=== PATIENT | male | born 1965 | race Caucasian/White ===

== ENCOUNTER 2018-07-13 06:01 | Day surgery (SDC) | payer OTHER ==
[2018-07-13] MEDS ORDERED: PROPOFOL 200 MG INJ (07:00)
[2018-07-13] MEDS ORDERED: LIDOCAINE 2% (SDV) 5 ML INJ (08:02)
[2018-07-13] MEDS ORDERED: FENTAnyl 50 MCG/ML VIAL (08:02)
[2018-07-13] MEDS ORDERED: MIDAZOLAM 1 MG/ML 2 ML INJ (08:02)
[2018-07-13] MEDS ORDERED: PROPOFOL 40 ML (08:02)
== END 2018-07-13 11:30 | disposition home or self-care (01) ==
LOC: GIL 06:01
DX: Z12.11 Encounter for screening for malignant neoplasm of colon (principal); K64.8 Other hemorrhoids; E78.00 Pure hypercholesterolemia, unspecified
CPT/HCPCS: 45378; 88305

== ENCOUNTER 2018-09-25 06:44 | Day surgery (SDC) | payer OTHER ==
[2018-09-25] MEDS ORDERED: LACTATED RINGER'S 1,000 ML IV (07:00)
[2018-09-25] MEDS ORDERED: SOD CHLORIDE 0.9% 1,000 ML IV (07:00)
[2018-09-25 08:03] LABS: ADD MAN DIFF? NO
[2018-09-25 08:05] LABS: BASOPHIL # 0.1 10^3/ul (0.0-0.1); BASOPHILS % 0.6 % (0.0-2.0); EOSINOPHILS # 0.5 10^3/ul (0.0-0.5); EOSINOPHILS % 5.1 % (0.0-7.0); HEMATOCRIT 40.2 % (37.0-47.0); HEMOGLOBIN 13.5 g/dl (12.0-16.0); LYMPHOCYTES # 1.3 10^3/ul (0.8-2.9); LYMPHOCYTES % 14.3 % (15.0-51.0); MEAN CORPUSCULAR HEMOGLOBIN 29.6 pg (29.0-33.0); MEAN CORPUSCULAR HGB CONC 33.6 g/dl (32.0-37.0); MEAN CORPUSCULAR VOLUME 88.2 fl (82.0-101.0); MEAN PLATELET VOLUME 9.7 fl (7.4-10.4); MONOCYTE # 0.7 10^3/ul (0.3-0.9); MONOCYTES % 8.2 % (0.0-11.0); NEUTROPHIL # 6.4 10^3/ul (1.6-7.5); NEUTROPHILS % 71.2 % (39.0-77.0); PLATELET COUNT 254 10^3/UL (140-415); RED BLOOD COUNT 4.56 10^6/ul (4.20-5.40); RED CELL DISTRIBUTION WIDTH 13.5 % (11.5-14.5)
[2018-09-25] MEDS ORDERED: MIDAZOLAM 1 MG/ML 2 ML INJ (08:38)
[2018-09-25] MEDS ORDERED: LIDOCAINE 2% (SDV) 5 ML INJ (08:38)
[2018-09-25] MEDS ORDERED: PROPOFOL 20 ML (08:38)
[2018-09-25] MEDS ORDERED: FENTAnyl 50 MCG/ML VIAL (08:39)
[2018-09-25] MEDS: LIDOCAINE 1%/EPI (1:100,000) (MDV) 20 ML (09:23)
[2018-09-25] MEDS ORDERED: FAMOTIDINE 20 MG INJ (09:26)
[2018-09-25] MEDS ORDERED: DEXAMETHASONE 4 MG/ML 5 ML INJ (09:26)
[2018-09-25] MEDS ORDERED: ONDANSETRON 4 MG INJ (09:26)
[2018-09-25] MEDS ORDERED: ONDANSETRON 4 MG INJ IV (09:30)
[2018-09-25] MEDS ORDERED: FENTAnyl 50 MCG/ML VIAL IV ×2 (09:30)
[2018-09-25] MEDS ORDERED: OXYCODONE/ACETAMINOPHEN (5/325) TAB PO (09:30)
[2018-09-25] MEDS ORDERED: ALBUTEROL 0.083% (NEB) 2.5 MG/3 ML AMP HHN (09:30)
[2018-09-25] MEDS ORDERED: EPHEDrine 25 MG/5 ML SYG (09:51)
[2018-09-25] MEDS: FERRIC SUBSULFATE 8 GM VIAL TOP (10:03)
[2018-09-25] MEDS: FENTAnyl 50 MCG/ML VIAL IV ×3 (10:44→11:07)
[2018-09-25] MEDS: OXYCODONE/ACETAMINOPHEN (5/325) TAB PO (12:07)
== END 2018-09-25 12:25 | disposition home or self-care (01) ==
LOC: SDS 06:44
DX: N87.9 Dysplasia of cervix uteri, unspecified (principal); J45.909 Unspecified asthma, uncomplicated; E66.9 Obesity, unspecified; Z68.32 Body mass index [BMI] 32.0-32.9, adult
CPT/HCPCS: 57522; 71045; 85025; 86850; 86900; 86901; 88305